=== PATIENT | male | born 1950 | race Caucasian/White ===

== ENCOUNTER → 2018-12-17 | Outpatient (REF) | payer MEDICARE ==
[~2018-12-17] VITALS: Ht 188 cm; Wt 129.7 kg
[~2018-12-17] MED LIST: ALPRAZOLAM0.5 MG PO; BAYER ASPIRIN E81 MG PO; FINASTERIDE5 MG PO; FUROSEMIDE40 MG PO; GABAPENTIN100 MG PO; HUMALOG KW100 UNIT/M; IRON45 MG PO; ISOSORB MONO30 MG PO; LANTUS100 UNIT/M SC; LISINOPRIL10 MG PO; MECLIZINE25 MG PO; METFORMIN500 MG PO; METOPROL TAR100 MG PO; MULTI VIT PO; OMEPRAZOLE10 MG PO; OXYCODONE HCL15 MG PO; POTASSIUM CHLO10 MEQ PO; SENNA-TABS8.6 MG PO; SIMVASTATIN40 MG PO; TIZANIDINE HCL4 M1 PO; VENLAFAXINE HCL75 M1 PO; VITAMIN C500 M4 PO; ZOLPIDEM5 M1 PO; ZYRTEC10 MG PO
[2018-12-17 12:24] VITALS: BP 156/78
== END | disposition home or self-care (01) ==
LOC: PO 11:35 → ORM 12:00
PROVIDERS: ATTEND Internal Medicine Gastroenterology
DX: Z01.818 Encounter for other preprocedural examination (principal); R13.10 Dysphagia, unspecified; R11.2 Nausea with vomiting, unspecified; K21.9 Gastro-esophageal reflux disease without esophagitis; Z86.010 Personal history of colon polyps; K59.00 Constipation, unspecified; R10.12 Left upper quadrant pain; R10.11 Right upper quadrant pain; Z86.2 Personal history of diseases of the blood and blood-forming organs and certain disorders involving the immune mechanism; I25.10 Atherosclerotic heart disease of native coronary artery without angina pectoris; I10 Essential (primary) hypertension; E11.9 Type 2 diabetes mellitus without complications; E78.00 Pure hypercholesterolemia, unspecified; G47.30 Sleep apnea, unspecified; Z95.1 Presence of aortocoronary bypass graft; Z89.411 Acquired absence of right great toe; Z90.49 Acquired absence of other specified parts of digestive tract; Z95.818 Presence of other cardiac implants and grafts; Z98.890 Other specified postprocedural states

== ENCOUNTER 2018-12-25 09:44 | Day surgery (SDC) | payer MEDICARE ==
[~2018-12-25] VITALS: Ht 188 cm; Wt 129.3 kg
[2018-12-25 13:15] VITALS: BP 111/58
== END 2018-12-25 13:20 | disposition home or self-care (01) ==
LOC: ENDO 09:44 → ORM 10:30 → ENDO 11:55
PROVIDERS: ATTEND Internal Medicine Gastroenterology
PROC: 0D758ZZ Dilation of Esophagus, Via Natural or Artificial Opening Endoscopic (ICD-10-PCS; principal; 2018-12-25)
PROC: 0DB78ZX Excision of Stomach, Pylorus, Via Natural or Artificial Opening Endoscopic, Diagnostic (ICD-10-PCS; 2018-12-25)
PROC: 0DBH8ZX Excision of Cecum, Via Natural or Artificial Opening Endoscopic, Diagnostic (ICD-10-PCS; 2018-12-25)
PROC: 0DBL8ZX Excision of Transverse Colon, Via Natural or Artificial Opening Endoscopic, Diagnostic (ICD-10-PCS; 2018-12-25)
PROC: 0DBN8ZX Excision of Sigmoid Colon, Via Natural or Artificial Opening Endoscopic, Diagnostic (ICD-10-PCS; 2018-12-25)
PROC: 0DBK8ZX Excision of Ascending Colon, Via Natural or Artificial Opening Endoscopic, Diagnostic (ICD-10-PCS; 2018-12-25)
DX: K22.2 Esophageal obstruction (principal); K25.9 Gastric ulcer, unspecified as acute or chronic, without hemorrhage or perforation; K29.50 Unspecified chronic gastritis without bleeding; K21.9 Gastro-esophageal reflux disease without esophagitis; D12.2 Benign neoplasm of ascending colon; D12.0 Benign neoplasm of cecum; D12.5 Benign neoplasm of sigmoid colon; D12.3 Benign neoplasm of transverse colon; K64.4 Residual hemorrhoidal skin tags; K64.8 Other hemorrhoids; E11.9 Type 2 diabetes mellitus without complications; Z79.899 Other long term (current) drug therapy; Z86.010 Personal history of colon polyps